=== PATIENT | female | born 1950 | race Caucasian/White ===

== ENCOUNTER 2017-10-02 08:30 | Outpatient (RCR) | payer BC, MEDICARE ==
--- NOTE | 2017-08-21 13:10 | PT INITIAL EVALUATION ---
MEDICAL DIAGNOSIS: R29.6 Frequent falls TREATMENT DIAGNOSIS: R29.6, Alzheimer's disease DATE OF ONSET: 01/20/17 SUBJECTIVE: Tessie Keller presents to PT for frequent falls. She attends with her aide, Charity, as Tessie has moderate Alzheimer's. Tessie has six hours of aide coverage, has grab bars and shower bench, five steps to bedroom with handrail. Charity, Tessie and I discussed improving standing balance time for hygiene work. Tessie's works outside the home. Tessie denies pain today. REHAB PROBLEM LIST: Impaired Cognition Impaired Bed Mobility Decreased Strength Impaired Transfers Decreased Endurance Decreased Balance Decreased Function Decreased Mobility Decreased Gait PREVIOUS MEDICAL HISTORY: Alzheimer's disease, hyperlipidemia, hypothyroidism, LBP. OCCUPATION: Retired. OBJECTIVE: Posture: Stands with heels 8" apart, fearful, flexed trunk. ROM: Ankle DF PROM 0 deg. B. Strength: LE's 4-/5. Special Tests: Tessie had slow eye tracking seated and finding targets in gait. Mobility: Bridges 4", with difficulty stabilizing her R knee. Sit to spout liner 1- 3 attempts with UE use Gait: Tinetti Gait and Balance 8 points, a 71% impairment. Tessie is able to ambulate with hand held assist with feet not clearing the floor or passing each other, and has reduced attention to items to the side, L and R. She ambulates with either a 4WW or front wheeled walker too far in front of her, staying too close to furniture. Balance: Fearful, grabs for people or furniture when standing. Increased postural sway with immediate standing balance. Static stand with hand held assist 30 seconds, stop due to fatigue, increased postural sway. No stepping, hip, ankle balance strategies elicited. ASSESSMENT: Tessie Keller presents with high fall risk from fear, weakness, impaired cognition, possible visual deficits. She's a good candidate to work gait and balance training to reduce fall risk and ease caregiver burden. She did 20 minutes of home exercise instruction with her aide with fatigue. Short Term Goals 4 weeks: Tessie transfers with immediate steady standing balance. 6 weeks: Tessie ambulates wtih AD safely, stands 2 minutes with postural control for hygiene, Tinetti Gait and Balance 12 point+. Patient's Goals Reduce falls. PLAN: Patient to be seen for Strengthening/condition Range of Motion Stretching Neuromuscular Re-ed Gait Trg/Balance Trg Home Exercise Program 2x/Week for 6 Weeks Thank you for this referral. If you have any questions, comments, or concerns about this report or plan, please contact me at . [facility]
[~2017-10-02 08:30] MED LIST: ASCO-182 PO; ASCO500C9 PO; CALC-521 PO; CYCL10TA29 PO; DONE23TA3 PO; ESTR625 PO; FISH1CAP15 PO; HYDR-317 PO; LEV88 PO; MEMA1CAP3; MEMA1CAP3 PO; MULT-19; OMEG-96 PO; PNEU0.5D3 IM; RIVA1PAT3 TD; SIMV-1 PO; SIMV-59 PO; [UNRECOGNIZED DRUG - CODE] PO; [UNRECOGNIZED DRUG - CODE] TD
--- NOTE | 2017-10-02 15:13 | PT PLAN OF CARE ---
Physician: Dr. Topher Zhou Patient is being seen: 2x/week Therapist: Petra Francis, PT Medical Diagnosis: R29.6 Frequent falls Treatment Diagnosis: R29.6, Alzheimer's disease Date of Onset: 01/20/17 Date of Initial Evaluation: 08/21/17 Date patient was last seen: 10/02/17 Number of treatments: 11 Number of cancellations/No shows: 1 INTERVENTIONS: Strengthening/condition Range of Motion Stretching Neuromuscular Re-ed Gait Trg/Balance Trg Home Exercise Program GOALS: 4 weeks: Tessie transfers with immediate steady standing balance. (met) 6 weeks: Tessie ambulates with AD safely (met), stands 2 minutes with postural control for hygiene (met), Tinetti Gait and Balance 12 point+ (met). PATIENT'S GOAL: Reduce falls. met Patient Compliance: Excellent Prognosis: Good Reasons for discontinuing therapy: S: Tessie and her aide, Charity, relate Tessie is ambulating more steadily, isn't falling and is doing HEP and gym program 5 days per week. Tessie will finish vision therapy in 2-3 visits. Posture: Stands with heels 8" apart, upright trunk, relaxed. Strength: LE's improved to 4+/5. Gait: Tessie now ambulates with POULTRY RAISER easily on firm surface, independently for 10- 15 feet, turning with balance control L and R. She needs high contrast for unfamiliar stairs for depth perception. Tinetti Gait and Balance improved from 8 to 22, now a regular, not high, fall risk. Special Tests: Tessie had almost normal eye tracking seated and finding targets in gait. Mobility: Sit to industrial engineering 1 attempt without UE use. A/P: Tessie Keller has done well with PT and also vision therapy to reduce fall risk and improve gait and mobility. I'll DC PT to supervised HEP/Gym program. Thank you. MICHAEL
[2017-10-22] MEDS ORDERED: LEVO88TA45 PO (09:56)
[2017-11-20] MEDS ORDERED: DIPH0.5D12 IM (08:44)
== END 2017-11-19 ==
LOC: PT 08:30
PROVIDERS: ATTEND Internal Medicine
DX: R29.6 Repeated falls (principal); G30.9 Alzheimer's disease, unspecified; E03.9 Hypothyroidism, unspecified; M54.5 Low back pain; E78.5 Hyperlipidemia, unspecified
CPT/HCPCS: 97162

== ENCOUNTER 2017-11-14 18:10 | Emergency (ER) | payer BC ==
[~2017-11-14 18:10] MED LIST changes: +LEVO88TA45 PO
[2017-11-14 18:14] VITALS: BP 145/85
--- NOTE | 2017-11-15 11:05 | ER Report ---
History and Physical Time Seen By MD: 18:17 Hx. of Stated Complaint: PATIENTS FAMILY MEMBER REPORTS THAT SHE FELL AT HOME. PATIENT HAS A HEAD LACERATION (HALLEY POLLARD DO) Time Seen By MD: 18:21 ([facility]PA[facility] HPI/ROS CHIEF COMPLAINT: Laceration HISTORY OF PRESENT ILLNESS: This is a 66-year-old female who presents to the emergency department with her for a laceration. According to the the patient has a history of dementia, when he got home she had a laceration to the right posterior part of her scalp. Patient denies falling however she does have a history of dementia her states that he could not find any indication that she had fallen at home. Patient denies being on any blood thinners. According to patient is and acting appropriate and is at baseline. Patient has no other complaints, no chest pain, no nausea, vomiting or headaches. The also states that the patient's tetanus has been updated within the last 10 years. REVIEW OF SYSTEMS: Respiratory: No cough, no dyspnea. Cardiovascular: No chest pain, no palpitations. Gastrointestinal: No vomiting, no abdominal pain. Musculoskeletal: No back pain. Integumentary: As above. ([facility]ON SPAULDING [facility]) Allergies: Coded Allergies: buspirone (Verified Allergy, Intermediate, "LOCK JAW", 07/12/16) codeine (Verified Allergy, Mild, NAUSEA/VOMITING, 07/12/16) morphine (Verified Allergy, Mild, NAUSEA/VOMITING, 07/12/16) donepezil (Verified Allergy, Unknown, 02/28/17) memantine (Verified Allergy, Unknown, 02/28/17) Home Meds Active Scripts Levothyroxine Sodium (LEVOTHYROXINE SODIUM) 88 Mcg Tablet, 88 MCG PO QDAY, #90 TAB 4 Refills Prov:RACHEAL ERNANDEZ MD 10/22/17 Estropipate (ESTROPIPATE) 0.75 Mg Tablet, 1.5 TAB PO DAILY, #30 TAB 9 Refills Prov:RACHEAL ERNANDEZ MD 09/10/17 Reported Medications Ascorbic Acid (VITAMIN C) 500 Mg Tablet, 500 MG PO, TAB 08/06/17 [place]-3 Fatty Acids/Fish Oil (OMEGA 3 1,000 MG SOFTGEL) 1 Each Capsule, 1 EACH PO QDAY, CAPSULE 08/06/17 Simvastatin (SIMVASTATIN) 80 Mg Tablet, 80 MG PO QHS, TAB 08/06/17 Memantine HCl/Donepezil HCl (Namzaric 28 mg-10 mg Capsule) 1 Each Cap.spr.24, 1 PO QDAY 08/06/17 Calcium Carbonate (TUMS) 300 Mg Tab.chew, 500 MG PO DAILY, TAB.CHEW 02/28/17 Rivastigmine (Rivastigmine) 9.5 Mg/24 Hour Patch.td24, 9.5 MG TD DAILY 02/28/17 Multivits-Min/Iron/FA/Lutein (Centrum Silver Women Tablet) 1 Each Tablet 07/12/16 Past Medical/Surgical History Patient has a past medical and surgical history of Alzheimer's disease, arthritis, appendectomy, hysterectomy, D&C, foot surgery, tonsillectomy. ([facility]) Reviewed Nurses Notes: Yes (DAVON SPAULDING) Smoking Status: Never Smoker Exposure to Second Hand Smoke?: No Hx Substance Use Disorder: No Hx Alcohol Use: No (HALLEY POLLARD DO) Constitutional Vital Sign - Last 24 Hours 11/14/17 18:14 Temp 97.9 Pulse 71 Resp 20 B/P (MAP) 145/85 Pulse Ox 92 O2 Delivery Room Air ([facility]) Physical Exam General Appearance: The patient is alert, has no immediate need for airway protection and no current signs of toxicity. Eyes: Pupils equal and round no injection. No hemotympanum. Respiratory: Chest is non tender, lungs are clear to auscultation. Cardiac: regular rate and rhythm. Gastrointestinal: Abdomen is soft and non tender, no masses, bowel sounds normal. Musculoskeletal: Neck: Neck is supple and non tender. Extremities have full range of motion and are non tender. Skin: 3.5 cm laceration to the right posterior scalp. No crepitus, depressions or obvious deformities. DIFFERENTIAL DIAGNOSIS: After history and physical exam differential diagnosis was considered for laceration, subdural hematoma and contusion. ([facility]) Medical Decision Making ED Course/Re-evaluation ED Course The patient was mandatory room. A history physical were obtained. Frontal diagnoses were considered. I did discuss a head CT with the , he declined a head CT at this time. I did tell him that we are unsure if she fell was unsure if she had any bleeding in her brain and he said that she is at her baseline and he doesn't feel that it warranted at this time. The laceration was anesthetized, cleaned and repaired as noted below. The patient's and were instructed to return to the emergency department or follow-up with her primary care provider to have his brian removed. They're also encouraged to monitor the wound for signs of infection and return to the ER for any other concerns. Patient and were in agreement with this plan of care and discharged home. Procedure: Laceration repair. Verbal consent was obtained from the patient and her . The 3.5 m laceration on the posterior scalp was anesthetized in the usual fashion. The wound was scrubbed, draped and explored to its base with a gloved finger. There were no deep structures involved. The wound was repaired with 7 brian. The wound repair was simple. The procedure was performed by myself. Decision to Disposition Date: November 14, 2017 Decision to Disposition Time: 18:40 ([facility]) Depart Departure Latest Vital Signs Vital Signs Date Time Temp Pulse Resp B/P (MAP) Pulse Ox O2 Delivery O2 Flow Rate FiO2 11/14/17 18:14 97.9 71 20 145/85 92 Room Air ([facility]) Impression: Primary Impression: Scalp laceration Condition: Improved Disposition: HOME OR SELF-CARE Referrals: RACHEAL ERNANDEZ MD (PCP) Patient Instructions: Acute Wound Care (ED), Laceration (DC) Additional Instructions: Drink plenty of water. Get plenty of rest. Apply a thin layer of antibiotic ointment to the wound one to 2 times a day. Monitor for signs of infection such as. Drainage, fevers swelling around the wound site. You can return to the emergency department or follow-up with your primary care provider in 7-14 days to have the brian removed. Problem Qualifiers Primary Impression: Scalp laceration Encounter type: initial encounter Qualified Codes: S01.01XA - Laceration without foreign body of scalp, initial encounter HALLEY POLLARD DO November 14, 2017 18:17 DAVON SPAULDING November 14, 2017 18:23 <Electronically signed by DAVON SPAULDING> D/ 1853 D/T: D/T: 16 16 MARVEL/ADÁN RODRIGUEZ
== END 2017-11-14 18:47 | disposition home or self-care (01) ==
LOC: ER 18:20
DX: S01.01XA Laceration without foreign body of scalp, initial encounter (principal)
CPT/HCPCS: 99282

== ENCOUNTER 2018-03-07 09:18 | Observation (INO) | payer BC ==
[~2018-03-07] VITALS: Ht 172.7 cm; Wt 78.9 kg
[~2018-03-07 09:18] MED LIST changes: +DIPH0.5D12 IM; -SIMV-59 PO; +SIMV-63 PO
[2018-03-07] MEDS ORDERED: NS(*) 0.9% 1000 ML BAG 1,000 ML IV ONE (09:39)
[2018-03-07] MEDS ORDERED: ASPIRIN 81 MG CHEW CHEW ONE (09:40)
--- NOTE | 2018-03-07 09:43 | EKG ---
FACILITY: [facility] PATIENT NAME: AMBIKA MAGANA : [id number] MR: [id number] V: [id number] EXAM DATE: ORDERING PHYSICIAN: RUTHIE HDZ TECHNOLOGIST: Test Reason : Blood Pressure : / mmHG Vent. Rate : 060 BPM Atrial Rate : 060 BPM P-R Int : 250 ms QRS Dur : 128 ms QT Int : 444 ms P-R-T Axes : 071 -61 004 degrees QTc Int : 444 ms Sinus rhythm with 1st degree AV block Right bundle branch block Left anterior fascicular block Bifascicular block Left axis deviation Possible Inferior infarct , age undetermined Abnormal ECG No previous ECGs available Confirmed by Tyler Cabrales ([id number]) on 03/07/2018 10:52:49 PM Referred By: Confirmed By:Tyler Grey
[2018-03-07 09:46] LABS: PLATELET COUNT, AUTOMATED 222 K/uL (150-450)
--- NOTE | 2018-03-07 10:45 | RADIOLOGY IMAGING REPORT ---
FACILITY: [facility] PATIENT NAME: Tessie Keller : 1950 MR: [id number] V: [id number] EXAM DATE: ORDERING PHYSICIAN: RUTHIE HDZ TECHNOLOGIST: Location: [facility] Patient: Tessie Keller : 1950 Visit/Account:[id number] Date of Sevice: 03/07/2018 CHEST PA AND LAT COMPARISONS: None. ADDITIONAL PERTINENT HISTORY: Chest pain FINDINGS: Cardiomediastinal silhouette: Negative. Pulmonary vasculature: Negative. Lung estrella: Mild peribronchial thickening. No segmental consolidative process. Pleural spaces: Negative. Osseous structures: Mild compression fracture involving the lower thoracic spine. Surrounding soft tissues: Negative. IMPRESSION: 1. Mild bronchitic change. 2. No segmental consolidative process. Report Dictated By: Byron Randle MD at 03/07/2018 10:38 AM Report E-Signed By: Byron Randle MD at 03/07/2018 10:41 AM WSN:[id number]
[2018-03-07] MEDS ORDERED: NITROGLYCERIN 0.4 MG SUBL SL ONE ×2 (10:50→11:15)
--- NOTE | 2018-03-07 11:00 | ER Report ---
History and Physical Time Seen By MD: 09:20 Hx. of Stated Complaint: HOME HEALTH STATES SHE NOTICED PT BECAME VERY FIDGETY THIS MORNING, HER BREATHING CHANGED. A BABY ASPIRIN WAS GIVEN AT 0900. BASELINE PT HAS EARLY ONSET DEMENTIA PER CAREGIVER. STATES SHE IS AT BASELINE COGNITION, HOWEVER APPEARS MORE ANXIOUS THAN NORMAL. PT STATES SHE IS HAVING CHEST PAIN. HPI/ROS CHIEF COMPLAINT: chest pain HISTORY OF PRESENT ILLNESS: Hx limited by dementia; per caregiver, pt was resting but began c/o chest pain at 0830; has not had previously; is sternal without radiation; pt cannot describe; just state it 'hurts'; per caregiver and , does not appear she had has similar previously. Does not radiate to back. Denies sob, vomiting, nausea, abd pain, may REVIEW OF SYSTEMS: Constitutional: No fever, no chills. Eyes: No discharge. ENT: No sore throat. Cardiovascular: above Respiratory: No cough, no shortness of breath. Gastrointestinal: No abdominal pain, no vomiting. Genitourinary: no urinary symptoms Musculoskeletal: No back pain. Skin: No rashes. Neurological: No headache. Remainder of the 14 system rev: Yes Allergies: Coded Allergies: buspirone (Verified Allergy, Intermediate, "LOCK JAW", 07/12/16) codeine (Verified Allergy, Mild, NAUSEA/VOMITING, 07/12/16) morphine (Verified Allergy, Mild, NAUSEA/VOMITING, 07/12/16) donepezil (Verified Allergy, Unknown, 02/28/17) memantine (Verified Allergy, Unknown, 02/28/17) Home Meds Active Scripts Simvastatin (SIMVASTATIN) 80 Mg Tablet, 80 MG PO QHS, #90 TAB 1 Refill Prov:RACHEAL ERNANDEZ MD 12/19/17 Rivastigmine (Rivastigmine) 9.5 Mg/24 Hour Patch.td24, 9.5 MG TD DAILY, #90 PATCH 2 Refills Prov:RACHEAL ERNANDEZ MD 12/05/17 Levothyroxine Sodium (LEVOTHYROXINE SODIUM) 88 Mcg Tablet, 88 MCG PO QDAY, #90 TAB 4 Refills Prov:RACHEAL ERNANDEZ MD 10/22/17 Estropipate (ESTROPIPATE) 0.75 Mg Tablet, 1.5 TAB PO DAILY, #30 TAB 9 Refills Prov:RACHEAL ERNANDEZ MD 09/10/17 Reported Medications Ascorbic Acid (VITAMIN C) 500 Mg Tablet, 500 MG PO, TAB 08/06/17 [place]-3 Fatty Acids/Fish Oil (OMEGA 3 1,000 MG SOFTGEL) 1 Each Capsule, 1 EACH PO QDAY, CAPSULE 08/06/17 Memantine HCl/Donepezil HCl (Namzaric 28 mg-10 mg Capsule) 1 Each Cap.spr.24, 1 PO QDAY 08/06/17 Calcium Carbonate (TUMS) 300 Mg Tab.chew, 500 MG PO DAILY, TAB.CHEW 02/28/17 Multivits-Min/Iron/FA/Lutein (Centrum Silver Women Tablet) 1 Each Tablet 07/12/16 Past Medical/Surgical History no cardiac, no VTE Reviewed Nurses Notes: Yes Hx Smoking: No Smoking Status: Never Smoker Exposure to Second Hand Smoke?: No Hx Substance Use Disorder: No Hx Alcohol Use: No Constitutional Vital Sign - Last 24 Hours 03/07/18 03/07/18 03/07/18 03/07/18 09:21 09:21 09:24 09:30 Temp 98.2 Pulse 61 Resp 18 B/P (MAP) 168/106 (126) 156/91 156/91 (112) 123/82 (96) Pulse Ox 95 O2 Delivery Room Air 03/07/18 03/07/18 03/07/18 03/07/18 09:33 09:48 10:00 10:03 Pulse 59 62 58 Resp 21 8 13 B/P (MAP) 154/88 (110) Pulse Ox 96 95 91 03/07/18 03/07/18 03/07/18 03/07/18 10:30 10:33 10:48 10:53 Pulse 64 59 56 Resp 10 13 21 B/P (MAP) 184/95 (124) Pulse Ox 95 95 93 03/07/18 03/07/18 03/07/18 03/07/18 11:00 11:03 11:10 11:13 Pulse 61 58 Resp 12 9 B/P (MAP) 165/106 (125) 145/90 (108) Pulse Ox 92 93 03/07/18 11:20 B/P (MAP) 146/89 (108) Physical Exam General Appearance: The patient is alert, has no immediate need for airway protection and no signs of toxicity. Eyes: Pupils equal and round no pallor or injection. ENT, Mouth: Mucous membranes are moist. Respiratory: There are no retractions, lungs are clear to auscultation. Cardiovascular: Regular rate and rhythm. no m/r/g. No carotid bruit Gastrointestinal: Abdomen is soft and non tender, no masses, bowel sounds normal. Neurological: alert, answers simple questions, c/o chest pain, does not have hx recall, follows commands Skin: Warm and dry, no rashes. Musculoskeletal: Neck is supple non tender. Extremities are nontender, nonswollen and have full range of motion. DIFFERENTIAL DIAGNOSIS: After history and physical exam differential diagnosis was considered for chest pain including but not limited to myocardial ischemia, aortic dissection, pericarditis pulmonary embolus, chest wall pain, pleural inflammation and pulmonary infectious causes. Medical Decision Making Data Points Result Diagram: 03/07/1825 03/07/1825 Laboratory Hematology Test 03/07/18 09:25 Red Blood Count 5.15 M/uL (4.17-5.56) Mean Corpuscular Volume 94.8 fL (80.0-96.0) Mean Corpuscular Hemoglobin 32.2 pg (26.0-33.0) Mean Corpuscular Hemoglobin Concent 33.9 g/dL (32.0-36.0) Red Cell Distribution Width 13.3 % (11.5-14.5) Mean Platelet Volume 9.2 fL (7.2-11.1) Neutrophils (%) (Auto) 51.6 % (39.4-72.5) Lymphocytes (%) (Auto) 33.8 % (17.6-49.6) Monocytes (%) (Auto) 12.8 % (4.1-12.4) Eosinophils (%) (Auto) 1.3 % (0.4-6.7) Basophils (%) (Auto) 0.5 % (0.3-1.4) Nucleated RBC Relative Count (auto) 0.1 /100WBC Neutrophils # (Auto) 2.1 K/uL (2.0-7.4) Lymphocytes # (Auto) 1.4 K/uL (1.3-3.6) Monocytes # (Auto) 0.5 K/uL (0.3-1.0) Eosinophils # (Auto) 0.1 K/uL (0.0-0.5) Basophils # (Auto) 0.0 K/uL (0.0-0.1) Nucleated RBC Absolute Count (auto) 0.00 K/uL Sodium Level 145 mmol/L (137-145) Potassium Level 3.5 mmol/L (3.5-5.0) Chloride Level 104 mmol/L (98-107) Carbon Dioxide Level 31 mmol/L (22-31) Blood Urea Nitrogen 12 mg/dl (7-18) Creatinine 0.90 mg/dl (0.52-1.04) Glomerular Filtration Rate Calc > 60.0 Random Glucose 80 mg/dl (75-110) Calcium Level 9.3 mg/dl (8.4-10.2) Total Bilirubin 0.6 mg/dl (0.2-1.3) Aspartate Amino Transf (AST/SGOT) 30 U/L (0-35) Alanine Aminotransferase (ALT/SGPT) 28 U/L (0-56) Alkaline Phosphatase 98 U/L (0-126) Troponin I 0.051 ng/ml Total Protein 7.1 g/dl (6.3-8.2) Albumin 4.4 g/dl (3.5-5.0) Chemistry Test 03/07/18 09:25 White Blood Count 4.1 k/uL (4.5-11.0) Red Blood Count 5.15 M/uL (4.17-5.56) Hemoglobin 16.6 g/dL (12.0-16.0) Hematocrit 48.8 % (34.0-47.0) Mean Corpuscular Volume 94.8 fL (80.0-96.0) Mean Corpuscular Hemoglobin 32.2 pg (26.0-33.0) Mean Corpuscular Hemoglobin Concent 33.9 g/dL (32.0-36.0) Red Cell Distribution Width 13.3 % (11.5-14.5) Platelet Count 222 K/uL (150-450) Mean Platelet Volume 9.2 fL (7.2-11.1) Neutrophils (%) (Auto) 51.6 % (39.4-72.5) Lymphocytes (%) (Auto) 33.8 % (17.6-49.6) Monocytes (%) (Auto) 12.8 % (4.1-12.4) Eosinophils (%) (Auto) 1.3 % (0.4-6.7) Basophils (%) (Auto) 0.5 % (0.3-1.4) Nucleated RBC Relative Count (auto) 0.1 /100WBC Neutrophils # (Auto) 2.1 K/uL (2.0-7.4) Lymphocytes # (Auto) 1.4 K/uL (1.3-3.6) Monocytes # (Auto) 0.5 K/uL (0.3-1.0) Eosinophils # (Auto) 0.1 K/uL (0.0-0.5) Basophils # (Auto) 0.0 K/uL (0.0-0.1) Nucleated RBC Absolute Count (auto) 0.00 K/uL Glomerular Filtration Rate Calc > 60.0 Calcium Level 9.3 mg/dl (8.4-10.2) Total Bilirubin 0.6 mg/dl (0.2-1.3) Aspartate Amino Transf (AST/SGOT) 30 U/L (0-35) Alanine Aminotransferase (ALT/SGPT) 28 U/L (0-56) Alkaline Phosphatase 98 U/L (0-126) Troponin I 0.051 ng/ml Total Protein 7.1 g/dl (6.3-8.2) Albumin 4.4 g/dl (3.5-5.0) EKG/Imaging EKG Interpretation ekg's without dynamic changes 12 lead EKG: Rhythm: sinus reid [place]: left QRS: widened ST segments: bifasicular block, inv III, avf, v1-3 rpt no change Monitor Interpretation: Normal Sinus Rhythm ED Course/Re-evaluation ED Course Pt presents with chest pain; 0830 onset, constant, no prior episodes. Improved with nitro x 2. No dynamic ekg changes. Considered but doubt aortic dissection, ptx, pe, or other emergent disease initial troponin borderline elevated; without e/o dynamic ekg changes, asa admin but will withhold heparin/tx unless further changes. Pt is full code and per , would consider wanting cath if intervention appropriate. Discussed with hospitalist; will admit for monitoring, reassessment. Decision to Disposition Date: Mar 07, 2018 Decision to Disposition Time: 11:43 Depart Departure Latest Vital Signs Vital Signs Date Time Temp Pulse Resp B/P (MAP) Pulse Ox O2 Delivery O2 Flow Rate FiO2 03/07/18 11:20 146/89 (108) 03/07/18 11:13 58 9 93 03/07/18 09:21 98.2 Room Air Impression: Primary Impression: Chest pain Condition: Improved Disposition: Admitted from ER Referrals: RACHEAL ERNANDEZ MD (PCP) Problem Qualifiers Primary Impression: Chest pain Chest pain type: other chest pain Qualified Codes: R07.89 - Other chest pain RUTHIE HDZ MD Mar 07, 2018 11:00
--- NOTE | 2018-03-07 11:19 | EKG ---
FACILITY: [facility] [place] PATIENT NAME: AMBIKA MAGANA : [id number] MR: [id number] V: [id number] EXAM DATE: ORDERING PHYSICIAN: RUTHIE HDZ TECHNOLOGIST: Test Reason : Blood Pressure : / mmHG Vent. Rate : 052 BPM Atrial Rate : 052 BPM P-R Int : 254 ms QRS Dur : 126 ms QT Int : 460 ms P-R-T Axes : -22 -53 -05 degrees QTc Int : 427 ms Sinus bradycardia with 1st degree AV block Right bundle branch block Left anterior fascicular block Bifascicular block Left axis deviation Cannot rule out Inferior infarct (cited on or before 07-MAR-2018) Abnormal ECG When compared with ECG of 07-MAR-2018 09:25, No significant change was found Confirmed by Tyler Cabrales ([id number]) on 03/07/2018 10:53:43 PM Referred By: Confirmed By:Tyler Grey
[2018-03-07 12:25] VITALS: BP 157/84
[2018-03-07] MEDS ORDERED: NITROGLYCERIN 0.4 MG SUBL SL PRN (13:10)
[2018-03-07] MEDS ORDERED: FLUSH 10 ML SYR IVP PRN (13:15)
[2018-03-07] MEDS ORDERED: ACETAMINOPHEN 325 MG TAB PO PRN (13:15)
[2018-03-07] MEDS ORDERED: INFLUENZA VIRUS VAC 0.5 ML SYR IM ONLY ONE (13:15)
[2018-03-07] MEDS ORDERED: ONDANSETRON 4 MG/2 ML VIAL IVP PRN (13:15)
--- NOTE | 2018-03-07 14:57 | EKG ---
FACILITY: [facility] PATIENT NAME: AMBIKA MAGANA : [id number] MR: [id number] V: [id number] EXAM DATE: ORDERING PHYSICIAN: EDIN NAVAS TECHNOLOGIST: Test Reason : Blood Pressure : / mmHG Vent. Rate : 057 BPM Atrial Rate : 057 BPM P-R Int : 240 ms QRS Dur : 138 ms QT Int : 444 ms P-R-T Axes : 055 -55 004 degrees QTc Int : 432 ms Sinus bradycardia with 1st degree AV block Right bundle branch block Left anterior fascicular block Bifascicular block Left axis deviation Abnormal ECG When compared with ECG of 07-MAR-2018 11:15, No significant change was found Confirmed by Edin Cabrales ([id number] on 03/07/2018 10:54:58 PM Referred By: Confirmed By:Edin Navas
[2018-03-07 15:06] VITALS: BP 162/92
--- NOTE | 2018-03-07 15:43 | History & Physical ---
History of Present Illness Chief Complaint Chest pain History of Present Illness She is a 67-year-old female who presented to the ER with c/o chest pain. Her medical history is limited by dementia; per caregiver, pt was resting and began to c/o chest pain at 0830; has not had previously; is sternal without radiation; pt cannot describe; just state it 'hurts'; per caregiver and , does not appear she had has this similar problem previously. Does not radiate to back. Denies sob, vomiting, nausea, abdominal pain, headache. She had borderline troponin in the emergency department. She was recommended for observation on medical floor. History Problems: (1) Alzheimer disease Status: Chronic (2) Hypothyroidism Status: Chronic (3) Hyperlipidemia Status: Chronic Home Meds Active Scripts Simvastatin (SIMVASTATIN) 80 Mg Tablet, 80 MG PO QHS, #90 TAB 1 Refill Prov:RACHEAL ERNANDEZ MD 12/19/17 Rivastigmine (Rivastigmine) 9.5 Mg/24 Hour Patch.td24, 9.5 MG TD DAILY, #90 PAT CH 2 Refills Prov:RACHEAL ERNANDEZ MD 12/05/17 Levothyroxine Sodium (LEVOTHYROXINE SODIUM) 88 Mcg Tablet, 88 MCG PO QDAY, #90 TAB 4 Refills Prov:RACHEAL ERNANDEZ MD 10/22/17 Estropipate (ESTROPIPATE) 0.75 Mg Tablet, 1.5 TAB PO DAILY, #30 TAB 9 Refills Prov:RACHEAL ERNANDEZ MD 09/10/17 Reported Medications Ascorbic Acid (VITAMIN C) 500 Mg Tablet, 500 MG PO, TAB 08/06/17 [place]-3 Fatty Acids/Fish Oil (OMEGA 3 1,000 MG SOFTGEL) 1 Each Capsule, 1 EACH PO QDAY, CAPSULE 08/06/17 Memantine HCl/Donepezil HCl (Namzaric 28 mg-10 mg Capsule) 1 Each Cap.spr.24, 1 PO QDAY 08/06/17 Calcium Carbonate (TUMS) 300 Mg Tab.chew, 500 MG PO DAILY, TAB.CHEW 02/28/17 Multivits-Min/Iron/FA/Lutein (Centrum Silver Women Tablet) 1 Each Tablet 07/12/16 Allergies: Coded Allergies: buspirone (Verified Allergy, Intermediate, "LOCK JAW", 07/12/16) codeine (Verified Allergy, Mild, NAUSEA/VOMITING, 07/12/16) morphine (Verified Allergy, Mild, NAUSEA/VOMITING, 07/12/16) donepezil (Verified Allergy, Unknown, 02/28/17) memantine (Verified Allergy, Unknown, 02/28/17) Patient History: FH: atrial fibrillation MOTHER, Hx Smoking: No Smoking Status: Never Smoker Exposure to Second Hand Smoke?: No Hx Alcohol Use: No Hx Substance Use Disorder: No Social Drug Use: Never Review of Systems All Systems Reviewed/Normal: Yes, Except as Noted Cardiovascular: Chest Pain Exam Vital Signs Vital Signs Date Time Temp Pulse Resp B/P (MAP) Pulse Ox O2 Delivery O2 Flow Rate FiO2 03/07/18 15:08 92 03/07/18 15:06 98.4 62 18 162/92 (115) Room Air General Appearance: Alert, Awake, No Acute Distress, Afebrile Neuro: No Gross deficits Cardiovascular: Regular Rate and Rhythm Respiratory: No Respiratory Distress, Clear to Auscultation GI: Abd Soft and Non-Tender Extremities: Warm, Perfused; No Edema Psych: Appropriate Mood & Affect Medical Decision Making Data Points Result Diagram: 03/07/1892403/07/18 0925 Assessment and Plan Problems: (1) Chest pain Status: Acute Assessment & Plan: She presented with chest pain. Troponin was checked and was considered borderline. She had an EKG done, which show bivascular block. She will have Troponin blood draws, continue to monitor telemetry. She will get Nitro as needed for chest pain. History is somewhat limited by patient's dementia, however she denies any cardiac history herself but believes her mother had a heart attack. (2) Hypothyroidism Status: Chronic Assessment & Plan: She is on chronic treatment with Levothyroxine. (3) Hyperlipidemia Status: Chronic Assessment & Plan: She is on chronic treatment with Simvastatin. (4) Alzheimer disease Status: Chronic Assessment & Plan: She lives at home with , and has home health care. Venous Thromboembolism Antithrombotics Is Pt On Any Antithrombotics?: Yes Exam Sepsis Risk: No Definite Risk Problem Qualifiers (1) Chest pain: Chest pain type: other chest pain Qualified Codes: R07.89 - Other chest pain ANNA RASMUSSEN TOMOGRAPHIC TECH Mar 07, 2018 15:43
[2018-03-07 19:54] VITALS: BP 178/83
[2018-03-07] MEDS ORDERED: SIMVASTATIN 40 MG TAB PO SCH (21:00)
[2018-03-07] MEDS ORDERED: PATCH REMOVAL 1 EA TP SCH (21:00)
[2018-03-07] MEDS ORDERED: RIVASTIGMINE 9.5 MG/24 HR TP SCH (21:00)
[2018-03-07] MEDS ORDERED: DONEPEZIL HCL PO SCH (21:00)
[2018-03-07] MEDS ORDERED: MEMANTINE HCL PO SCH (21:00)
[2018-03-07 23:27] VITALS: BP 149/82
[2018-03-08 04:28] VITALS: BP 141/62
[2018-03-08 07:00] VITALS: BP 160/81
[2018-03-08] MEDS ORDERED: LEVOTHYROXINE SOD 0.088 MG TAB PO SCH (09:00)
[2018-03-08] MEDS ORDERED: ASPIRIN 81 MG CHEW PO SCH (09:00)
[2018-03-08] MEDS ORDERED: ENOXAPARIN 40 MG/0.4ML SYR SC SCH (09:00)
[2018-03-08] MEDS ORDERED: IBUPROFEN 200 MG TAB PO PRN (09:45)
[2018-03-08 10:43] VITALS: Ht 172.7 cm; Wt 78.9 kg
[2018-03-08 11:23] VITALS: BP 159/79
[2018-03-08] MEDS ORDERED: IBUP-56 PO (11:24)
--- NOTE | 2018-03-08 11:30 | Hospitalist Depart ---
Discharge Summary Reason for Hosp/Final Diag: (1) Chest pain Status: Acute Hospital Course & Plan: She presented with chest pain. Serial troponin levels were drawn and continued to trend downward. She had an EKG done, which show bivascular block. She did receive nitro, but did not relieve chest pain. Unlikely, related to cardiac reason. But, recommended patient to follow up with Dr. Zhou for outpatient stress test. Likely chest pain is costochondritis, as the pain is noticed only when she palpates her chest. Recommended she take ibuprofen for three days with meals to see if relieved. Chest pain today resolved. (2) Hypothyroidism Status: Chronic Hospital Course & Plan: She is on chronic treatment with Levothyroxine. (3) Hyperlipidemia Status: Chronic Hospital Course & Plan: She is on chronic treatment with Simvastatin. (4) Alzheimer disease Status: Chronic Hospital Course & Plan: She lives at home with , and has home health care. Departure Latest Vital Signs Vital Signs 03/08/18 03/08/18 03/08/18 07:00 07:08 07:14 Temp 97.6 Pulse 72 Resp 14 B/P (MAP) 160/81 (107) Pulse Ox 92 O2 Delivery Room Air O2 Flow Rate 2.0 Weight (Pounds): 174 Result Diagram: 03/07/1892403/07/18924 Condition: Improved Discharge: Home, Self Care Discharge Instructions Home Meds Active Scripts Ibuprofen (IBUPROFEN) 200 Mg Tablet, 400 MG PO TID PRN for PAIN, #12 TAB Prov:ANNA RASMUSSEN MOLASSES PREPARER 03/08/18 Simvastatin (SIMVASTATIN) 80 Mg Tablet, 80 MG PO QHS, #90 TAB 1 Refill Prov:RACHEAL ZHOU MD 12/19/17 Rivastigmine (Rivastigmine) 9.5 Mg/24 Hour Patch.td24, 9.5 MG TD DAILY, #90 PATCH 2 Refills Prov:RACHEAL ZHOU MD 12/05/17 Levothyroxine Sodium (LEVOTHYROXINE SODIUM) 88 Mcg Tablet, 88 MCG PO QDAY, #90 TAB 4 Refills Prov:RACHEAL ZHOU MD 10/22/17 Estropipate (ESTROPIPATE) 0.75 Mg Tablet, 1.5 TAB PO DAILY, #30 TAB 9 Refills Prov:RACHEAL ZHOU MD 09/10/17 Reported Medications Ascorbic Acid (VITAMIN C) 500 Mg Tablet, 500 MG PO, TAB 08/06/17 [place]-3 Fatty Acids/Fish Oil (OMEGA 3 1,000 MG SOFTGEL) 1 Each Capsule, 1 EACH PO QDAY, CAPSULE 08/06/17 Memantine HCl/Donepezil HCl (Namzaric 28 mg-10 mg Capsule) 1 Each Cap.spr.24, 1 PO QDAY 08/06/17 Calcium Carbonate (TUMS) 300 Mg Tab.chew, 500 MG PO DAILY, TAB.CHEW 02/28/17 Multivits-Min/Iron/FA/Lutein (Centrum Silver Women Tablet) 1 Each Tablet 07/12/16 Diet: Regular Activity: As Tolerated, With Walker Special Instructions: Follow up with Dr. Zhou within one week. Stress test recommended for patient. Take ibuprofen 400mg three times daily with meals as needed for pain. Copies to: RACHEAL ZHOU MD ; Venous Thromboembolism Antithrombotics Is Pt On Any Antithrombotics?: Yes Problem Qualifiers (1) Chest pain: Chest pain type: other chest pain Qualified Codes: R07.89 - Other chest pain ANNA RASMUSSEN MOLASSES PREPARER Mar 08, 2018 11:30
== END 2018-03-08 09:24 | disposition home or self-care (01) ==
LOC: ER 09:31 → MED 11:49 → INTOOBSV 11:49
PROVIDERS: ADMIT Internal Medicine; ATTEND Internal Medicine
DX: R07.89 Other chest pain (principal); E03.9 Hypothyroidism, unspecified; E78.5 Hyperlipidemia, unspecified; G30.9 Alzheimer's disease, unspecified; F02.80 Dementia in other diseases classified elsewhere, unspecified severity, without behavioral disturbance, psychotic disturbance, mood disturbance, and anxiety
CPT/HCPCS: 36415; 71046; 84484; 85025; 93005; 96360; 96361; 96372; 99284; G0378; J1650; J7030; 82040; 82247; 82310; 82374; 82435; 82565; 82947; 84075; 84132; 84155; 84295; 84450; 84460; 84520

== ENCOUNTER → 2018-05-28 | Outpatient (CLI) | payer BC ==
[2018-03-08 10:43] VITALS: BMI 26.4
[~2018-05-28] MED LIST changes: +IBUP-56 PO
--- NOTE | 2018-05-29 08:24 | RADIOLOGY IMAGING REPORT ---
FACILITY: [facility] PATIENT NAME: AMBIKA MAGANA : [id number] MR: [id number] V: [id number] EXAM DATE: ORDERING PHYSICIAN: RACHEAL ERNANDEZ TECHNOLOGIST: Leigh Galeano PROCEDURE:BILATERAL DIGITAL SCREENING MAMMOGRAM WITH CAD ASSISTED INTERPRETATION COMPARISON:Prior mammograms 12/08/16, 02/01/12. INDICATIONS:Screening Mammo FINDINGS: Extremely dense heterogeneous fibroglandular tissue is seen throughout the breasts. The parenchymal pattern has remained stable allowing for difference in mammographic technique & patient positioning. There is no evidence of malignant appearing mass, malignant appearing calcifications or other secondary sign of malignancy in either breast. DIAGNOSTIC CATEGORY 1--NEGATIVE. RECOMMENDATIONS: ROUTINE MAMMOGRAM AND CLINICAL EVALUATION. IMPRESSION: BIRADS 1: Negative. No significant abnormality is seen. Dictated by: Zoë Lopez M.D. on 05/28/2018 at 16:38 Transcribed by: SAIDA on 05/29/2018 at 8:18 Approved by: Zoë Lopez M.D. on 05/29/2018 at 8:23 [facility]
== END ==
LOC: MAMO 01:12
PROVIDERS: ATTEND Internal Medicine
DX: Z12.31 Encounter for screening mammogram for malignant neoplasm of breast (principal); Z80.3 Family history of malignant neoplasm of breast
CPT/HCPCS: 77063; 77067

== ENCOUNTER 2018-06-06 06:50 | Outpatient (RCR) | payer BC ==
[2018-03-08 10:43] VITALS: BMI 26.4
[2018-06-04 11:46] LABS: PLATELET COUNT, AUTOMATED 244 K/uL (150-450)
[2018-06-04 12:15] LABS: LDL CHOLESTEROL 94 mg/dl
[~2018-06-06 06:50] MED LIST changes: +FLU180SY11 IM; +ROSU40TA2 PO; +SIMV-117 PO; -SIMV-63 PO
[2018-06-06] MEDS ORDERED: GADOBENATE 529MG/1ML 15ML VIAL IVP ONE (14:10)
--- NOTE | 2018-06-06 15:17 | RADIOLOGY IMAGING REPORT ---
FACILITY: [facility] [place] PATIENT NAME: Tessie Keller : 1950 MR: [id number] V: [id number] EXAM DATE: ORDERING PHYSICIAN: RACHEAL ERNANDEZ TECHNOLOGIST: Location: [facility] Patient: Tessie Keller : 1950 Visit/Account:[id number] Date of Sevice: 06/06/2018 EXAMINATION: MRI brain without IV contrast MRI brain with IV contrast HISTORY: Alzheimer's dementia without behavioral disturbance. COMPARISON: None. TECHNIQUE: Multi-planar, multi-sequence brain MRI was performed before and after IV gadolinium. CONTRAST: 15 mL of IV MultiHance gadolinium. FINDINGS: Brain volume: Mild generalized atrophy with associated concordant prominence of the ventricular syst em. Sagittal midline structures: Normal. Ventricles: Normal. Acute ischemic changes: There is no diffusion restriction present to suggest acute ischemia. There is a small area of T2 shine through peripherally in the left anterior frontal lobe. Hemorrhage: No acute hemorrhage or hemosiderin staining. Masses/edema: None. Enhancement: There is no abnormal intracranial enhancement. There is mucosal enhancement in the left maxillary sinus. Matthew-white: Small chronic infarct in the left anterior frontal lobe. White matter: A few T2/FLAIR hyperintensities in the deep white matter bilaterally. Vessels: Normal. Extra-axial: None. Calvarium/scalp: Negative. Skull base: Negative. Visualized sinuses/orbits: The left maxillary sinus is completely opacified with T2 hypointensity ce ntrally. Visualized upper neck: Negative. IMPRESSION: 1. No acute infarct, hemorrhage or intracranial mass lesion. 2. 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 3. Mild nonspecific white matter disease is suspicious for chronic small vessel ischemia. 4. 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 T2 hypointensity centrally could be due to dens ed inspissated secretions or superimposed noninvasive fungal sinusitis. Report Dictated By: Kristy Schneider MD at 06/06/2018 3:06 PM Report E-Signed By: Kristy Schneider MD at 06/06/2018 3:13 PM [id number]
== END 2018-06-06 18:00 | disposition home or self-care (01) ==
LOC: EDSTATUS 06:50 → MRI 06:50
PROVIDERS: ATTEND Internal Medicine
DX: E78.5 Hyperlipidemia, unspecified (principal); E03.9 Hypothyroidism, unspecified; G30.9 Alzheimer's disease, unspecified; J34.89 Other specified disorders of nose and nasal sinuses; I63.89 Other cerebral infarction
CPT/HCPCS: 36415; 70553; 84439; 84443; 85025; A9577; 82040; 82247; 82310; 82374; 82435; 82465; 82565; 82947; 83718; 84075; 84132; 84155; 84295; 84450; 84460; 84478; 84520

== ENCOUNTER 2018-07-18 08:53 | Emergency (ER) | payer BC ==
[2018-03-08 10:43] VITALS: Wt 83.9 kg
--- NOTE | 2018-07-18 09:04 | ER Report ---
History and Physical Time Seen By MD: 09:04 HPI/ROS CHIEF COMPLAINT: syncopal episode HISTORY OF PRESENT ILLNESS: This is a 67 year old female. She was with her caregiver at the [facility], when she felt very weak. Caregiver noted that she just stopped, bent over with hands on her knees and seemed to be having trouble responding. Her caregiver helped her down to the floor where she rested for a while. She was able to respond through all of this and did not lose consciousness. No recent illnesses. No fevers or chills. She was incontinent of bowel/urine. No shaking or seizure-like activity. No cough or shortness of breath. She was sweaty and pale during this. No complaint of headache. Chronic vision problems, but nothing new at this time. Denies chest pain. Denies abdominal pain. Home Meds Active Scripts Amoxicillin (AMOXICILLIN) 500 Mg Capsule, 1 CAP PO Q8H, #15 CAPSULE 0 Refills Prov:PAMELA TERRAZAS MD 07/18/18 Rosuvastatin Calcium (Rosuvastatin Calcium) 40 Mg Tablet, 40 MG PO QDAY, #90 TAB 3 Refills Prov:RACHEAL ERNANDEZ MD 06/04/18 Ibuprofen (IBUPROFEN) 200 Mg Tablet, 400 MG PO TID PRN for PAIN, #12 TAB Prov:ANNA RASMUSSEN 03/08/18 Rivastigmine (Rivastigmine) 9.5 Mg/24 Hour Patch.td24, 9.5 MG TD DAILY, #90 PATCH 2 Refills Prov:RACHEAL ERNANDEZ MD 12/05/17 Levothyroxine Sodium (LEVOTHYROXINE SODIUM) 88 Mcg Tablet, 88 MCG PO QDAY, #90 TAB 4 Refills Prov:RACHEAL ERNANDEZ MD 10/22/17 Reported Medications Ascorbic Acid (VITAMIN C) 500 Mg Tablet, 500 MG PO, TAB 08/06/17 [place]-3 Fatty Acids/Fish Oil (OMEGA 3 1,000 MG SOFTGEL) 1 Each Capsule, 1 EACH PO QDAY, CAPSULE 08/06/17 Memantine HCl/Donepezil HCl (Namzaric 28 mg-10 mg Capsule) 1 Each Cap.spr.24, 1 PO QDAY 08/06/17 Calcium Carbonate (TUMS) 300 Mg Tab.chew, 500 MG PO DAILY, TAB.CHEW 02/28/17 Multivits-Min/Iron/FA/Lutein (Centrum Silver Women Tablet) 1 Each Tablet 07/12/16 Reviewed Nurses Notes: Yes Hx Smoking: No Smoking Status: Never Smoker Exposure to Second Hand Smoke?: No Hx Substance Use Disorder: No Hx Alcohol Use: No Constitutional Vital Sign - Last 24 Hours 07/18/18 07/18/18 07/18/18 07/18/18 09:03 09:04 09:05 09:08 Temp 97.7 Pulse 69 66 Resp 18 24 B/P (MAP) 131/78 (95) 131/78 Pulse Ox 90 90 O2 Flow Rate 2.0 07/18/18 07/18/18 07/18/18 09:15 09:23 09:38 Pulse 65 Resp 10 B/P (MAP) 129/77 (94) 130/73 (92) 127/79 (95) 109/80 (90) Pulse Ox 96 Physical Exam General Appearance: The patient is alert. No acute distress. Eyes: Pupils are equal, round. Reactive to light. No pallor, injection or icterus. Extraocular movements are intact. ENT: Mucous membranes are moist. Normal oral mucosa. Posterior oropharynx is normal. Neck: Supple and non tender. Respiratory: Lungs are clear to auscultation. Cardiovascular: Regular rate and rhythm. No murmurs, gallops or rubs. Normal capillary refill. Gastrointestinal: Abdomen is soft and non tender. Nondistended. Normal active bowel sounds. Neurological: Alert and oriented x3. Skin: Warm and dry. No rashes. Musculoskeletal: Extremities are nontender. No tenderness in palpation of the cervical, thoracic and lumbar spine. DIFFERENTIAL DIAGNOSIS: After history and physical exam, differential diagnosis was considered for a patient with what sounds like a near syncopal episode, but can not rule out cardiac event, mini-stroke, atypical seizure, dehydration, electrolyte abnormality, infectious process. Medical Decision Making Data Points Result Diagram: 07/18/1811 07/18/18 0911 Laboratory Hematology Test 07/18/18 09:11 07/18/18 10:07 Red Blood Count 5.27 M/uL (4.17-5.56) Mean Corpuscular Volume 95.3 fL (80.0-96.0) Mean Corpuscular Hemoglobin 31.9 pg (26.0-33.0) Mean Corpuscular Hemoglobin Concent 33.5 g/dL (32.0-36.0) Red Cell Distribution Width 13.7 % (11.5-14.5) Mean Platelet Volume 9.1 fL (7.2-11.1) Neutrophils (%) (Auto) 55.0 % (39.4-72.5) Lymphocytes (%) (Auto) 34.6 % (17.6-49.6) Monocytes (%) (Auto) 8.9 % (4.1-12.4) Eosinophils (%) (Auto) 1.0 % (0.4-6.7) Basophils (%) (Auto) 0.5 % (0.3-1.4) Nucleated RBC Relative Count (auto) 0.1 /100WBC Neutrophils # (Auto) 2.0 K/uL (2.0-7.4) Lymphocytes # (Auto) 1.3 K/uL (1.3-3.6) Monocytes # (Auto) 0.3 K/uL (0.3-1.0) Eosinophils # (Auto) 0.0 K/uL (0.0-0.5) Basophils # (Auto) 0.0 K/uL (0.0-0.1) Nucleated RBC Absolute Count (auto) 0.00 K/uL Sodium Level 143 mmol/L (137-145) Potassium Level 3.7 mmol/L (3.5-5.0) Chloride Level 107 mmol/L (98-107) Carbon Dioxide Level 26 mmol/L (22-31) Blood Urea Nitrogen 17 mg/dl (7-18) Creatinine 1.00 mg/dl (0.52-1.04) Glomerular Filtration Rate Calc 55.1 Random Glucose 127 mg/dl (75-110) Calcium Level 9.3 mg/dl (8.4-10.2) Total Bilirubin 1.0 mg/dl (0.2-1.3) Aspartate Amino Transf (AST/SGOT) 36 U/L (0-35) Alanine Aminotransferase (ALT/SGPT) 34 U/L (0-56) Alkaline Phosphatase 91 U/L (0-126) Troponin I < 0.012 ng/ml Total Protein 7.1 g/dl (6.3-8.2) Albumin 4.3 g/dl (3.5-5.0) Urine Color Caro Urine Clarity Cloudy Urine pH 5.0 pH (4.8-9.5) Urine Specific [place] 1.020 Urine Protein Negative mg/dL (NEGATIVE) Urine Glucose (UA) Negative mg/dL (NEGATIVE) Urine Ketones Negative mg/dL (NEGATIVE) Urine Blood Negative (NEGATIVE) Urine Nitrite Positive (NEGATIVE) Urine Bilirubin Negative (NEGATIVE) Urine Urobilinogen Negative mg/dL (0.2-1.9) Urine Leukocyte Esterase Trace (NEGATIVE) Urine RBC <1 /HPF (0-2/HPF) Urine WBC 7 /HPF (0-5/HPF) Urine Squamous Epithelial Cells None /LPF (NONE-FEW) Urine Bacteria Few /HPF (NONE-FEW) Urine Mucus Few /HPF (NONE-FEW) Chemistry Test 07/18/18 09:11 07/18/18 10:07 White Blood Count 3.7 k/uL (4.5-11.0) Red Blood Count 5.27 M/uL (4.17-5.56) Hemoglobin 16.8 g/dL (12.0-16.0) Hematocrit 50.3 % (34.0-47.0) Mean Corpuscular Volume 95.3 fL (80.0-96.0) Mean Corpuscular Hemoglobin 31.9 pg (26.0-33.0) Mean Corpuscular Hemoglobin Concent 33.5 g/dL (32.0-36.0) Red Cell Distribution Width 13.7 % (11.5-14.5) Platelet Count 262 K/uL (150-450) Mean Platelet Volume 9.1 fL (7.2-11.1) Neutrophils (%) (Auto) 55.0 % (39.4-72.5) Lymphocytes (%) (Auto) 34.6 % (17.6-49.6) Monocytes (%) (Auto) 8.9 % (4.1-12.4) Eosinophils (%) (Auto) 1.0 % (0.4-6.7) Basophils (%) (Auto) 0.5 % (0.3-1.4) Nucleated RBC Relative Count (auto) 0.1 /100WBC Neutrophils # (Auto) 2.0 K/uL (2.0-7.4) Lymphocytes # (Auto) 1.3 K/uL (1.3-3.6) Monocytes # (Auto) 0.3 K/uL (0.3-1.0) Eosinophils # (Auto) 0.0 K/uL (0.0-0.5) Basophils # (Auto) 0.0 K/uL (0.0-0.1) Nucleated RBC Absolute Count (auto) 0.00 K/uL Glomerular Filtration Rate Calc 55.1 Calcium Level 9.3 mg/dl (8.4-10.2) Total Bilirubin 1.0 mg/dl (0.2-1.3) Aspartate Amino Transf (AST/SGOT) 36 U/L (0-35) Alanine Aminotransferase (ALT/SGPT) 34 U/L (0-56) Alkaline Phosphatase 91 U/L (0-126) Troponin I < 0.012 ng/ml Total Protein 7.1 g/dl (6.3-8.2) Albumin 4.3 g/dl (3.5-5.0) Urine Color Caro Urine Clarity Cloudy Urine pH 5.0 pH (4.8-9.5) Urine Specific [place] 1.020 Urine Protein Negative mg/dL (NEGATIVE) Urine Glucose (UA) Negative mg/dL (NEGATIVE) Urine Ketones Negative mg/dL (NEGATIVE) Urine Blood Negative (NEGATIVE) Urine Nitrite Positive (NEGATIVE) Urine Bilirubin Negative (NEGATIVE) Urine Urobilinogen Negative mg/dL (0.2-1.9) Urine Leukocyte Esterase Trace (NEGATIVE) Urine RBC <1 /HPF (0-2/HPF) Urine WBC 7 /HPF (0-5/HPF) Urine Squamous Epithelial Cells None /LPF (NONE-FEW) Urine Bacteria Few /HPF (NONE-FEW) Urine Mucus Few /HPF (NONE-FEW) Urinalysis Test 07/18/18 10:07 Urine Color Caro Urine Clarity Cloudy Urine pH 5.0 pH (4.8-9.5) Urine Specific [place] 1.020 Urine Protein Negative mg/dL (NEGATIVE) Urine Glucose (UA) Negative mg/dL (NEGATIVE) Urine Ketones Negative mg/dL (NEGATIVE) Urine Blood Negative (NEGATIVE) Urine Nitrite Positive (NEGATIVE) Urine Bilirubin Negative (NEGATIVE) Urine Urobilinogen Negative mg/dL (0.2-1.9) Urine Leukocyte Esterase Trace (NEGATIVE) Urine RBC <1 /HPF (0-2/HPF) Urine WBC 7 /HPF (0-5/HPF) Urine Squamous Epithelial Cells None /LPF (NONE-FEW) Urine Bacteria Few /HPF (NONE-FEW) Urine Mucus Few /HPF (NONE-FEW) EKG/Imaging EKG Interpretation 12 lead EKG: Rhythm: Sinus rhythm with first-degree AV block [place]: normal QRS: Right bundle branch block, left anterior fascicular block ST segments: normal Imaging Head CT scan without contrast COMPARISONS: None ADDITIONAL PERTINENT HISTORY: Syncope TECHNIQUE: Multiple axial images were obtained from the skull base to the vertex without IV contrast. One of the following dose optimization techniques was utilized in the performance of this exam: Automated exposure control; adjustment of the mA and/or kV according to the patient's size; or use of an iterative reconstruction technique. Specific details can be referenced in the facility's radiology CT exam operational policy. FINDINGS: Midline shift: Negative Ventricles: Mild enlargement of the lateral and third ventricles. Otherwise negative Brain parenchyma: Patchy hypoattenuation within the periventricular and subcortical white matter, nonspecific but likely representing small vessel ischemic change on a chronic basis. No intraparenchymal hemorrhage. Extra-axial spaces: Mild cerebral atrophy. Intracranial vasculature: Cavernous internal carotid artery calcifications. Otherwise negative Osseous structures: Negative Paranasal sinuses and mastoid air cells: Near complete opacification of the left maxillary sinus with thickening of the prater of the left maxillary sinus Surrounding soft tissues and orbits: Negative IMPRESSION: 1. Age related changes as described above. 2. Underlying paranasal sinus disease involving the left maxillary sinus with findings likely representing long-standing inflammatory changes. 3. No acute intracranial pathology. Report Dictated By: Byron Randle MD at 07/18/2018 10:10 AM CHEST SINGLE AP Additional pertinent History: Chest pain COMPARISON STUDIES: 03/07/2018 FINDINGS: Support lines and catheters: None Lungs and Pleura: Lung estrella well expanded with no infiltrates or consolidations. No parenchymal mass lesions are seen. There are no effusions Heart and vasculature: Negative. Lyla and Mediastinum: Negative. Bones and Chest wall: Negative. Upper Abdomen: Negative. IMPRESSION: 1. Negative chest. No interval change Report Dictated By: Sunny Lorenzo MD at 07/18/2018 11:54 AM ED Course/Re-evaluation Clinical Indication for ER IV: Hydration, IV Access ED Course IV started and labs obtained. Unremarkable blood work. Orthostatic vital signs positive. Given a liter of normal saline. Cath urine shows signs of infection. EKG and imaging negative. Discussed findings of mild dehydration with orthostatic hypotension and urinary tract infection with patient and her spouse. Starting on Amoxicillin. Urine culture ordered. Discussed improved fluid intake at home. Decision to Disposition Date: Jul 18, 2018 Decision to Disposition Time: 12:08 Depart Departure Latest Vital Signs Vital Signs Date Time Temp Pulse Resp B/P (MAP) Pulse Ox O2 Delivery O2 Flow Rate FiO2 07/18/18 09:38 130/73 (92) 127/79 (95) 109/80 (90) 07/18/18 09:23 65 10 96 07/18/18 09:05 2.0 07/18/18 09:04 97.7 Impression: Primary Impression: Near syncope Additional Impressions: Urinary tract infection Orthostatic hypotension Condition: Improved Disposition: HOME OR SELF-CARE Referrals: RACHEAL ERNANDEZ MD (PCP) New Scripts Amoxicillin (AMOXICILLIN) 500 Mg Capsule 1 CAP PO Q8H, #15 CAPSULE 0 Refills Prov: PAMELA TERRAZAS MD 07/18/18 Patient Instructions: Dehydration (ED), Urinary Tract Infection in Women (ED) Additional Instructions: Start the antibiotic Amoxicillin 500mg three times a day for 5 days for the urinary tract infection. Increase your fluid intake to avoid dehydration and dizziness. Problem Qualifiers Additional Impressions: Urinary tract infection Urinary tract infection type: acute cystitis Hematuria presence: without hematuria Qualified Codes: N30.00 - Acute cystitis without hematuria PAMELA TERRAZAS MD Jul 18, 2018 09:04
[2018-07-18 09:31] LABS: PLATELET COUNT, AUTOMATED 262 K/uL (150-450)
[2018-07-18] MEDS ORDERED: NS(*) 0.9% 1000 ML BAG 1,000 ML IV ONE (09:35)
[2018-07-18 09:38] VITALS: BP 109/80
--- NOTE | 2018-07-18 09:38 | EKG ---
FACILITY: [facility] [place] PATIENT NAME: AMBIKA MAGANA : [id number] MR: [id number] V: [id number] EXAM DATE: ORDERING PHYSICIAN: PAMELA TERRAZAS TECHNOLOGIST: Test Reason : Blood Pressure : / mmHG Vent. Rate : 065 BPM Atrial Rate : 065 BPM P-R Int : 254 ms QRS Dur : 130 ms QT Int : 424 ms P-R-T Axes : 068 -66 023 degrees QTc Int : 440 ms Sinus rhythm with 1st degree AV block Right bundle branch block Left axis deviation Abnormal ECG When compared with ECG of 07-MAR-2018 14:45, No significant change was found Confirmed by NATALY HALE ([id number] on 07/18/2018 2:41:20 PM Referred By: Confirmed By:NATALY HALE
--- NOTE | 2018-07-18 10:20 | RADIOLOGY IMAGING REPORT ---
FACILITY: [facility] PATIENT NAME: Tessie Keller : 1950 MR: [id number] V: [id number] EXAM DATE: ORDERING PHYSICIAN: PAMELA TERRAZAS TECHNOLOGIST: Location: [facility] - [place] Patient: Tessie Keller : 1950 Visit/Account:[id number] Date of Sevice: 07/18/[address] scan without contrast COMPARISONS: None ADDITIONAL PERTINENT HISTORY: Syncope TECHNIQUE: Multiple axial images were obtained from the skull base to the vertex without IV contrast . One of the following dose optimization techniques was utilized in the performance of this exam: Aut omated exposure control; adjustment of the mA and/or kV according to the patient's size; or use of an iterative reconstruction technique. Specific details can be referenced in the facility's radiology CT exam operational policy. FINDINGS: Midline shift: Negative Ventricles: Mild enlargement of the lateral and third ventricles. Otherwise negative Brain parenchyma: Patchy hypoattenuation within the periventricular and subcortical white matter, no nspecific but likely representing small vessel ischemic change on a chronic basis. No intraparenchyma l hemorrhage. Extra-axial spaces: Mild cerebral atrophy. Intracranial vasculature: Cavernous internal carotid artery calcifications. Otherwise negative Osseous structures: Negative Paranasal sinuses and mastoid air cells: Near complete opacification of the left maxillary sinus wit h thickening of the prater of the left maxillary sinus Surrounding soft tissues and orbits: Negative IMPRESSION: 1. Age related changes as described above. 2. Underlying paranasal sinus disease involving the left maxillary sinus with findings likely represe nting long-standing inflammatory changes. 3. No acute intracranial pathology. Report Dictated By: Byron Randle MD at 07/18/2018 10:10 AM Report E-Signed By: Byron Randle MD at 07/18/2018 10:13 AM WSN:[id number]
--- NOTE | 2018-07-18 12:00 | RADIOLOGY IMAGING REPORT ---
FACILITY: [facility] - [place] PATIENT NAME: Tessie Keller : 1950 MR: [id number] V: [id number] EXAM DATE: ORDERING PHYSICIAN: PAMELA TERRAZAS TECHNOLOGIST: [place] [facility] [place]: Tsesie Keller : 1950 Visit/Account:[id number] Date of Sevice: 07/18/2018 CHEST SINGLE AP Additional pertinent History: Chest pain COMPARISON STUDIES: 03/07/2018 FINDINGS: Support lines and catheters: None Lungs and Pleura: Lung estrella well expanded with no infiltrates or consolidations. No parenchymal ma ss lesions are seen. There are no effusions Heart and vasculature: Negative. Lyla and Mediastinum: Negative. Bones and Chest wall: Negative. Upper Abdomen: Negative. IMPRESSION: 1. Negative chest. No interval change Report Dictated By: Sunny Lorenzo MD at 07/18/2018 11:54 AM Report E-Signed By: Sunny Lorenzo MD at 07/18/2018 11:56 AM WSN:[id number]
[2018-07-18] MEDS ORDERED: AMOX-362 PO (12:12)
== END 2018-07-18 12:37 | disposition home or self-care (01) ==
LOC: ER 09:15
DX: R55 Syncope and collapse (principal); N30.00 Acute cystitis without hematuria; I95.1 Orthostatic hypotension; I44.0 Atrioventricular block, first degree; I45.10 Unspecified right bundle-branch block; R94.31 Abnormal electrocardiogram [ECG] [EKG]
CPT/HCPCS: 70450; 71045; 81001; 84484; 85025; 87088; 96360; 96361; 99284; J7030; 82040; 82247; 82310; 82374; 82435; 82565; 82947; 84075; 84132; 84155; 84295; 84450; 84460; 84520; 93005; A4353

== ENCOUNTER → 2018-08-05 | Outpatient (CLI) | payer BC ==
[2018-03-08 10:43] VITALS: BMI 26.4
[~2018-08-05] MED LIST changes: +AMOX-362 PO
[2018-08-05 10:13] LABS: PLATELET COUNT, AUTOMATED 227 K/uL (150-450)
== END ==
LOC: LAB 09:59
PROVIDERS: ATTEND Internal Medicine
DX: Z01.818 Encounter for other preprocedural examination (principal); I95.1 Orthostatic hypotension; G30.9 Alzheimer's disease, unspecified; E78.5 Hyperlipidemia, unspecified; E03.9 Hypothyroidism, unspecified
CPT/HCPCS: 36415; 82040; 82247; 82310; 82374; 82435; 82565; 82947; 84075; 84132; 84155; 84295; 84450; 84460; 84520; 85025

== ENCOUNTER 2018-08-12 02:17 | Day surgery (SDC) | payer BC ==
[2018-03-08 10:43] VITALS: Ht 167.6 cm; Wt 72.1 kg
[~2018-08-12] VITALS: Ht 167.6 cm; Wt 72.1 kg
[2018-08-12] VITALS (10 sets, daily range): BP systolic 96–149; BP diastolic 60–84
[2018-08-12] MEDS ORDERED: fentaNYL CITR 100 MCG/2 ML AMP ONE ×2 (08:51→10:34)
[2018-08-12] MEDS ORDERED: FAMOTIDINE 20 MG TAB ONE (09:34)
[2018-08-12] MEDS ORDERED: FAMOTIDINE 20 MG TAB PO ONE ×2 (09:39→09:50)
[2018-08-12] MEDS ORDERED: ceFAZolin(*) 2GM/D5W 50ML 50 ML IVPB ONE (10:00)
[2018-08-12] MEDS ORDERED: LIDOCAINE/SOD BICARB 8.4% SYR ID ONE (10:00)
[2018-08-12] MEDS ORDERED: MIDAZOLAM 2 MG/2 ML VIAL IVP PRN (10:05)
[2018-08-12] MEDS ORDERED: FAMOTIDINE 20 MG/50 ML PREMIX IVPB ONE (10:05)
[2018-08-12] MEDS ORDERED: NORMOSOL R SOLN(*) 1000 ML BAG 1,000 ML IV PRN (10:05)
[2018-08-12] MEDS ORDERED: LIDOCAINE MPF 1% 5 ML VIAL ONE (10:38)
[2018-08-12] MEDS ORDERED: PROPOFOL EMUL(*) 10MG/ML 20 ML 20 ML ONE (10:38)
[2018-08-12] MEDS ORDERED: DEXAMETHASONE SOD PHOS 10MG/ML ONE (10:38)
[2018-08-12] MEDS ORDERED: ONDANSETRON 4 MG/2 ML VIAL ONE (10:38)
[2018-08-12] MEDS ORDERED: KETAMINE HCL 200 MG/20 ML MDV ONE (10:40)
[2018-08-12] MEDS ORDERED: SUGAMMADEX SOD 500 MG/5 ML SDV ONE (10:49)
[2018-08-12] MEDS ORDERED: NS(*) 0.9% 250 ML BAG 250 ML ONE (11:12)
[2018-08-12] MEDS ORDERED: LIDO/EPI 1% MDV 1:100,000 20ML INFIL ONE (11:12)
[2018-08-12] MEDS ORDERED: OXYMETAZOLINE SPRAY 15 ML BTL ONE (11:12)
--- NOTE | 2018-08-12 12:27 | OPERATIVE REPORT 1 ---
EVENT DATE: August 12, 2018 SURGEON: Frederick Ortega MD ANESTHESIOLOGIST: Danielito Matamoros MD ANESTHESIA: LMA. PREOPERATIVE DIAGNOSIS Chronic left maxillary sinusitis. POSTOPERATIVE DIAGNOSIS Chronic left maxillary sinusitis. PROCEDURE PERFORMED Left maxillary antrostomy. INDICATIONS Please refer to the preoperative note. DESCRIPTION OF PROCEDURE The patient was positively identified in the preoperative area. She was accompanied there by her . Risks were again explained, including but not limited to, bleeding, infection, injury to the orbit, vision changes, injury to the skull base, cerebrospinal fluid leak and those associated with anesthesia. The acknowledged understanding those risks. The patient was then brought back to the operative suite, laid supine on the operative table and anesthesia was administered. I again reviewed the patient's preoperative imaging. This was notable for an opacified left maxillary sinus. The left nasal cavity was then decongested by placing cottonoids containing Afrin solution. These were subsequently removed. A nasal endoscopy was performed. The left lateral nasal wall was injected with approximately 0.5 cc of 1% lidocaine with epinephrine. An uncinectomy was then performed. The natural maxillary ostium was widened with back-biting forceps and the microdebrider blade. Fungal concretions were encountered and suctioned and irrigated from the left maxillary sinus. FloSeal was placed for hemostasis. The patient was then turned to Anesthesia for emergence. ESTIMATED BLOOD LOSS 10 cc. COMPLICATIONS No complications. MTDD
[2018-08-12] MEDS ORDERED: SUGAMMADEX SOD 200 MG/2 ML SDV ONE (13:35)
--- NOTE | 2018-08-12 15:48 | NUR ---
1340 PT REC'D IN [place] VIA CART. SBAR REPORT FROM Yolanda JORDAN RN, VSS, MOUSTACHE DRESSING C/D/I, CLAUDIO AT BEDSIDE. 1345 TOLERATING PEPSI, JELLO, CHEESE AND CRACKERS, O2 SATS DROPPING, BUT PT EATING 1350 10L BLOW BY WHILE PT EATS 1355 BACK ON 2L MASK 1415 1L MASK 90% 1430 0.5 L 90% 1445 ROOM AIR TRIAL, POOR WAVEFORM D/T PT FIDGETING 1500 SWITCHED TO EAR LOBE PROBE, IMPROVED WAVEFORM AND SATS, CHANGED MOUSTACHE DRESSING, SOILED WITH JELLO, NO DRAINAGE PRESENT. 1530 VSS, SATTING WELL ON 0.5L
== END 2018-08-12 13:40 | disposition home or self-care (01) ==
LOC: OR 02:17
PROVIDERS: ATTEND Otolaryngology
DX: J32.0 Chronic maxillary sinusitis (principal)
CPT/HCPCS: 31256; J1100; J2001; J2405; J2704; J3010; J3490; J7050; J0690; J2370